=== PATIENT | female | born 1980 | race Caucasian/White ===

== ENCOUNTER → 2016-08-30 | Outpatient (CLI) | payer OTHER ==
--- NOTE | 2016-08-30 16:27 | REP ---
Obstetric ultrasound for anatomy: There is a single intrauterine gestation in a vertex presentation. There is movement and cardiac activity. The heart rate is 144 beats per minute. The placenta is posterior. There is no placenta previa or abruptio. The placenta is grade 0 maturity. The cervix is 4.9 cm length. Maternal adnexa and cul-de-sac are unremarkable. Gestational age by today's ultrasound is 20 weeks 6 days with an MARTHA of 01/11/2017. Gestational age by LMP is 19 weeks 4 days. weight is 400 grams (0 pounds, 14 ounces). This corresponds to the 56th percentile for 20 weeks 6 days and is greater than 97th percentile for 19 weeks 4 days. The following anatomic structures are identified and are unremarkable: Intracranial lateral ventricles, choroid plexus, cavum septum pellucidum, cerebellum/posterior fossa, facial profile, face, lungs, four-chamber heart, cardiac right and left ventricular outflow tracts, diaphragm, stomach, cord insertion, three-vessel cord, kidneys, bladder, spine and upper lower extremities. No anomalies are identified. Signed by Aleksey Peralta MD 08/30/2016 04:18 P
== END ==
LOC: M SMT 14:38
PROVIDERS: ATTEND Obstetrics & Gynecology
DX: Z34.82 Encounter for supervision of other normal pregnancy, second trimester (principal)

== ENCOUNTER → 2016-10-22 | Outpatient (CLI) | payer OTHER ==
[2016-10-22 19:48] LABS: BASO % 0.3 % (0.0-1.0); EOS # 0.1 K/mm3 (0.0-0.50); EOS % 1.4 % (0.0-3.0); LARGE UNSTAINED CELL # 0.1 K/mm3 (0.0-0.4); LARGE UNSTAINED CELL % 1.1 % (0.0-4.0); LYMPH # 1.6 K/mm3 (1.5-4.5); LYMPH % 15.8 % (24.0-44.0); MEAN CORPUSCULAR HEMOGLOBIN 30.5 pg (27.0-33.0); MEAN CORPUSCULAR HGB CONC 33.6 g/dl (32.0-36.5); MEAN CORPUSCULAR VOLUME 90.6 fl (80.0-96.0); MONO # 0.5 K/mm3 (0.0-0.8); NEUTROPHILS # 7.2 K/mm3 (1.8-7.7); NEUTROPHILS % 76.3 % (36.0-66.0); PLATELET COUNT, AUTOMATED 164 k/mm3 (150-450); RED CELL DISTRIBUTION WIDTH 13.4 % (11.5-14.5); WHITE BLOOD COUNT 9.5 K/mm3 (4.0-10.0)
== END ==
LOC: M WUC 15:28
PROVIDERS: ATTEND Specialist
DX: Z34.82 Encounter for supervision of other normal pregnancy, second trimester (principal)
CPT/HCPCS: 36415; 82950; 85025; 86850; 86900; 86901; J2790

== ENCOUNTER → 2016-12-24 | Outpatient (REF) | payer OTHER | LOC: M LAB REF 17:02 | PROVIDERS: ATTEND Obstetrics & Gynecology | DX: Z34.83 Encounter for supervision of other normal pregnancy, third trimester (principal) ==

== ENCOUNTER 2017-01-10 12:33 | Inpatient (IN) | payer OTHER ==
[~2017-01-10] VITALS: Ht 165.1 cm; Wt 82.0 kg
[2017-01-10] VITALS (11 sets, daily range): BP systolic 107–130; BP diastolic 56–87
[2017-01-10] MEDS ORDERED: PRENTAB9 PO (12:53)
[2017-01-10] MEDS ORDERED: miSOPROStol 50 MCG 1/2 TAB (S0191) PO SCH (13:00)
[2017-01-10 13:31] LABS: MEAN CORPUSCULAR HGB CONC 36.1 g/dl (32.0-36.5); MEAN CORPUSCULAR VOLUME 88.8 fl (80.0-96.0); RED CELL DISTRIBUTION WIDTH 13.3 % (11.5-14.5)
[2017-01-10] MEDS ORDERED: OXYTOCIN DRIP 30 UNITS in APPROPRIATE DILUENT 1 EA IV SCH (19:15)
[2017-01-11] VITALS (10 sets, daily range): BP systolic 111–144; BP diastolic 54–83
--- NOTE | 2017-01-11 00:10 | HPE ---
DATE OF ADMISSION: 01/10/2017 HISTORY: 36-year-old (G) 2, para (P) 1 female at 39-4/7 weeks gestation by 9-week ultrasound, estimated date of confinement (EDC) of 01/13/2017, presents with decreased intensity and frequency of movement for the last 2-1/2 days. She came to the office for evaluation. There was a reactive nonstress test in the office. On the amniotic fluid testing, she was noted to have an amniotic fluid index (FIDELIA) of 5.1. Decision made to induce labor due to prolonged decreased movement, as well as borderline oligohydramnios. COURSE: The patient initiated care at 8 weeks gestation on 06/13/2016. Her first trimester blood pressure was 126/76. Weight was 159 pounds. course was unremarkable. OBSTETRICAL HISTORY: October 2001: 40-week vaginal delivery 6 pound 12 ounce female infant, no complications. MEDICAL HISTORY: Varicose veins. ALLERGIES: PENICILLIN. SURGERIES: 1. Cholecystectomy 2009. 2. Laparoscopy 2007. SOCIAL HISTORY: The patient denies cigarettes, alcohol or drug use. The patient is . FAMILY HISTORY: Noncontributory. PHYSICAL EXAMINATION: VITAL SIGNS: Blood pressure 104/66, weight 189. She appears in no apparent distress. HEAD/NECK: Examination normal. LUNGS: Clear to auscultation. HEART: Regular rate and rhythm. ABDOMEN: Nontender. Gravid. heart tones category 1. STERILE VAGINAL EXAMINATION: 3 cm, 70% effaced, -2 station, vertex. EXTREMITIES: Nontender. LABORATORIES: Blood type A negative. Rubella immune. RPR nonreactive. Hepatitis B and C negative. HIV negative. Diabetes screen 105. GBS negative 12/24/2016. ASSESSMENT: 36-year-old (G) 2, para (P) 1 female at 39-4/7 weeks gestation presents for labor induction. The patient has had decreased movement, as well as borderline oligohydramnios. The patient is admitted on 01/10/2017. Risks for induction were discussed.
[2017-01-11] MEDS ORDERED: METHYLERGONOVINE MALEATE 0.2 MG TAB PO PRN (02:15)
[2017-01-11] MEDS ORDERED: RHOGAM 300 MCG (1500 IU) INJ (J2790) IM SCH (02:15)
[2017-01-11] MEDS ORDERED: ONDANSETRON 4MG/2ML VIAL (J2405) IV PRN (02:15)
[2017-01-11] MEDS ORDERED: DIBUCAINE 1% OINTMENT 30GM TOP PRN (02:15)
[2017-01-11] MEDS ORDERED: LIDOCAINE 1% MDV INJ 50 ML VIAL INFIL ONE (02:15)
[2017-01-11] MEDS ORDERED: DOCUSATE SODIUM 100 MG CAP PO PRN (02:15)
[2017-01-11] MEDS ORDERED: OXYTOCIN DRIP 30 UNITS in APPROPRIATE DILUENT 1 EA IV ONE (02:15)
[2017-01-11] MEDS ORDERED: MEASLES,MUMPS,RUBELLA VACCINE INJ (MMR-II) (90707) SC SCH (02:15)
[2017-01-11] MEDS: IBUPROFEN 800 MG TAB PO PRN ×3 (02:38→20:44)
[2017-01-11] MEDS: ACETAMINOPHEN 500 MG TAB PO PRN ×2 (04:02→08:35)
[2017-01-11] MEDS: PRENATAL VITAMIN TAB PO SCH (08:34)
[2017-01-12] MEDS: ACETAMINOPHEN 500 MG TAB PO PRN ×3 (01:39→21:39)
[2017-01-12 05:59] VITALS: BP 118/62
[2017-01-12] MEDS: PRENATAL VITAMIN TAB PO SCH (07:58)
[2017-01-12] MEDS: IBUPROFEN 800 MG TAB PO PRN ×2 (08:00→17:46)
--- NOTE | 2017-01-12 10:30 | DN ---
DATE OF DELIVERY: 01/11/2017 PREDELIVERY DIAGNOSES: 39-4/7 weeks' gestation. Borderline oligohydramnios. POSTDELIVERY DIAGNOSIS: Delivered. PROCEDURE: Spontaneous vaginal delivery. JOB SITE SUPERVISOR: Larry Templeton MD ANESTHESIA: None. ESTIMATED BLOOD LOSS: 300 mL. FINDINGS: 78-pound 1-ounce or 3656 gram male , scores 9 and 9. DELIVERY SUMMARY: After a short second stage, the patient had spontaneous delivery of an 8-pound 1-ounce male infant, scores 9 and 9, with no delivery anesthesia. Nuchal cord times one was reduced manually. The shoulders delivered spontaneously with ease. The cried spontaneously and was handed to the mother. The cord was doubly clamped and cut. The placenta delivered and appeared to be intact. A small 2nd-degree perineal laceration and left labial laceration repaired under local anesthesia with chromic suture in the usual fashion. The patient received intravenous (IV) Pitocin immediately after delivery of the placenta. Sponge and needle counts were correct.
[2017-01-12 17:39] VITALS: BP 125/72
[2017-01-13] MEDS: IBUPROFEN 800 MG TAB PO PRN (02:25)
[2017-01-13 05:37] VITALS: BP 130/75
[2017-01-13] MEDS: PRENATAL VITAMIN TAB PO SCH (08:26)
[2017-01-13] MEDS ORDERED: ACET50TA PO (08:54)
[2017-01-13] MEDS ORDERED: IBUP-1114 PO (08:54)
[2017-01-13] MEDS: ACETAMINOPHEN 500 MG TAB PO PRN (09:47)
== END 2017-01-13 11:25 | disposition home or self-care (01) | DRG 775 ==
LOC: M LDI 12:33 → M OBS 01-11 03:34
PROVIDERS: ADMIT Specialist; ATTEND Specialist
PROC: 10E0XZZ Delivery of Products of Conception, External Approach (ICD-10-PCS; principal; 2017-01-11)
PROC: 0KQM0ZZ Repair Perineum Muscle, Open Approach (ICD-10-PCS; 2017-01-11)
DX: O36.8130 Decreased fetal movements, third trimester, not applicable or unspecified (principal); O41.03X0 Oligohydramnios, third trimester, not applicable or unspecified; Z37.0 Single live birth; Z3A.39 39 weeks gestation of pregnancy; Z88.0 Allergy status to penicillin; Z90.49 Acquired absence of other specified parts of digestive tract; O69.82X0 Labor and delivery complicated by other cord entanglement, without compression, not applicable or unspecified; O70.1 Second degree perineal laceration during delivery

== ENCOUNTER → 2017-10-07 | Outpatient (CLI) | payer OTHER ==
[2017-10-07 20:10] LABS: HEMATOCRIT 40.5 % (36.0-47.0); HEMOGLOBIN 13.5 g/dl (12.0-16.0); MEAN CORPUSCULAR HEMOGLOBIN 28.7 pg (27.0-33.0); MEAN CORPUSCULAR HGB CONC 33.3 g/dl (32.0-36.5); MEAN CORPUSCULAR VOLUME 86.2 fl (80.0-96.0); PLATELET COUNT, AUTOMATED 224 10^3/uL (150-450); RED CELL DISTRIBUTION WIDTH 12.1 % (11.5-14.5); WHITE BLOOD COUNT 7.3 10^3/uL (4.0-10.0)
[2017-10-07 20:14] LABS: ALBUMIN 4.2 GM/DL (3.2-5.2); ALBUMIN/GLOBULIN RATIO 1.24 (1.00-1.93); ALKALINE PHOSPHATASE 47 U/L (45-117); ALT/SGPT 16 U/L (12-78); ANION GAP 7 MEQ/L (8-16); AST/SGOT 9 U/L (7-37); BILIRUBIN,TOTAL 0.2 MG/DL (0.2-1.0); BLOOD UREA NITROGEN 21 MG/DL (7-18); CALCIUM LEVEL 8.5 MG/DL (8.5-10.1); CARBON DIOXIDE LEVEL 29 MEQ/L (21-32); CHLORIDE LEVEL 105 MEQ/L (98-107); CREATININE FOR GFR 0.59 MG/DL (0.55-1.30); FREE T4 0.99 NG/DL (0.76-1.46); GLOMERULAR FILTRATION RATE > 60.0 (>60); GLUCOSE, FASTING 85 MG/DL (70-100); POTASSIUM SERUM 4.4 MEQ/L (3.5-5.1); SODIUM LEVEL 141 MEQ/L (136-145); THYROID STIMULATING HORMONE 0.257 uIU/ML (0.358-3.740); TOTAL PROTEIN 7.6 GM/DL (6.4-8.2)
== END ==
LOC: M WUC 15:58
DX: R42 Dizziness and giddiness (principal)

== ENCOUNTER → 2021-08-29 | Outpatient (REF) | payer OTHER ==
[~2021-08-29] MED LIST: IBUP-1114 PO; MAPA500T2 PO; PRENTAB9 PO
== END ==
LOC: M SFHCWAGY 11:12
PROVIDERS: ATTEND Specialist
DX: Z12.4 Encounter for screening for malignant neoplasm of cervix (principal); R87.610 Atypical squamous cells of undetermined significance on cytologic smear of cervix (ASC-US)
CPT/HCPCS: 87624; G0123

== ENCOUNTER → 2021-09-28 | Outpatient (CLI) | payer OTHER | LOC: M WHC 12:55 | PROVIDERS: ATTEND Specialist | DX: Z12.31 Encounter for screening mammogram for malignant neoplasm of breast (principal); Z53.9 Procedure and treatment not carried out, unspecified reason ==

== ENCOUNTER → 2021-10-15 | Outpatient (CLI) | payer OTHER | LOC: M WHC 13:10 | PROVIDERS: ATTEND Specialist | DX: N63.10 Unspecified lump in the right breast, unspecified quadrant (principal) | CPT/HCPCS: 76642; 77066; G0279 ==